=== PATIENT | male | born 1965 | race Caucasian/White ===

== ENCOUNTER 2018-01-29 12:02 | Emergency (ER) | payer MEDICAID, SELFPAY ==
[2018-01-29 12:03] VITALS: BP 146/90; PULSE 88; RESP 18; TEMP 36.3; O2SAT 100; BMI 21.9
--- NOTE | 2018-01-29 12:20 | ED.DCSUM_ITS ---
- ER Visit Summary Date of Service: 01/29/18 Chief Complaint: [Dental pain] History of Present Illness: The patient is a 52 M [presents to the emergency department with complaint of dental pain that became severe yesterday. Patient states that he has had some mild soreness to the right upper teeth for about a week. Patient also has discomfort into the right ear. He subjectively felt hot and chilled last night. Patient denies any recent trauma to his teeth but does state that he has a broken tooth in the right upper side of his mouth.] Physical Examination: [HEENT-PERRLA, EOMI. Cranial nerves II through XII grossly intact. TMs clear. Mucous membranes moist. No adenopathy. Right upper second molar is broken and carried and tender to palpation. No gingival abscess noted. No facial cellulitis. Cardiovascular-regular rate and rhythm without murmur or ectopy Lungs-clear to auscultation, chest wall stable without crepitus or subcu emphysema Abdomen-normoactive bowel sounds, soft, nontender, no rebound or rigidity, no peritoneal signs. Extremities-intact ?4, normal range of motion, normal pulses, atraumatic] Test Results: [None indicated] Emergency Department Course and Treatment: [] Treatment Plan: Patient will be started on amoxicillin and [place] [] Disposition: [Discharged to home in stable condition]. Patient advised to follow -up with the dentist within next 3-5 days. Impression: [Dental pain] This note was generated with [employer] dictation software. It may contain incorrect words, spelling, and punctuation that were not noted in review of the chart prior to signing ED Disposition - Plan for ED Patient: Chief Complaint: Dental Referrals: Giuseppe Richey DO [Primary Care Provider] -
--- NOTE | 2018-01-29 12:22 | DCINST.ED_ITS ---
ED Disposition - Plan for ED Patient: Chief Complaint: Dental Instructions: ED Tooth Pain, ED Cavity Dental Prescriptions: Hydrocodone Bitart/Apap 5-325 [[place] 5/325] 1 - 2 tab PO Q4H PRN PRN 3 Days #12 tab PRN Reason: Pain Amoxicillin 500 mg PO TID #30 tab Referrals: Giuseppe Richey DO [Primary Care Provider] - Additional Instructions: see a dentist
== END 2018-01-29 12:46 | disposition home or self-care (01) ==
PROVIDERS: Emergency Provider Emergency Medicine; Family Provider Family Medicine; PCP Family Medicine
DX: K08.89 Other specified disorders of teeth and supporting structures (principal); S02.5XXA Fracture of tooth (traumatic), initial encounter for closed fracture; X58.XXXA Exposure to other specified factors, initial encounter; Y93.9 Activity, unspecified; Y92.9 Unspecified place or not applicable; Y99.9 Unspecified external cause status; J44.9 Chronic obstructive pulmonary disease, unspecified; Z72.0 Tobacco use
CPT/HCPCS: 99281

== ENCOUNTER → 2018-05-31 13:14 | Outpatient (CLI) | payer MEDICAID, SELFPAY ==
[2018-05-31 15:27] LABS: Absolute Neutrophil Count 7.4 X10^3/uL (2.0-7.7); Basophil# 0.02 X10^3/uL; Basophil% 0.2 % (0-1); Eosinophil# 0.04 X10^3/uL; Eosinophils% 0.4 % (0-5); Hematocrit 44.4 % (40-54); Hemoglobin 14.6 g/dl (13.0-16.5); Lymphocyte % 21.5 % (19-41); Mean Corp Hgb Conc 32.9 g/gl (32-36); Mean Corpuscular Hgb 30.9 pg (27.0-32.0); Mean Corpuscular Volume 93.9 fL (80-94); Monocyte# 1.31 X10^3/uL; Monocyte% 11.7 % (0-10); Neutrophil # 7.37 X10^3/uL (2.7-7.7); Neutrophil % 65.9 % (47-70); Platelet Count 268 K/mm3 (150-450); RBC Distribution Width SD 46.5 fl (35.1-43.9); Red Blood Count 4.73 M/mm3 (4.6-6.2); White Blood Count 11.2 K/mm3 (4.4-11.0)
[2018-05-31 15:29] LABS: POSITIVE COUNT NO; POSITIVE DIFFERENTIAL NO; POSITIVE MORPHOLOGY NO
[2018-05-31 15:37] LABS: ALB/GLOB Ratio 1.3 RATIO (0.9-2.4); AST(SGOT) 22 U/L (15-37); Alanine Aminotransfer ALT/SGPT 37 U/L (16-61); Albumin, Serum 4.7 g/dL (3.2-5.0); Alkaline Phosphatase 78 U/L (45-117); Anion Gap 10 (5-15); BUN 18 mg/dL (7-18); BUN/Creat Ratio 16.4 RATIO (10-20); Calcium,Total 9.2 mg/dL (8.5-10.1); Chloride 105 mmol/L (98-107); Cholesterol 151 mg/dL (200); EST Glomerular Filtration Rate 75 mL/min (>60); Est Glom Filt Rate - Afr Amer 90 mL/min (>60); Globulin 3.7 g/dL (2.2-4.2); Glucose 99 mg/dL (74-106); High Density Lipoprotein 50 mg/dL; Potassium 3.7 mmol/L (3.5-5.1); Protein, Total 8.4 g/dL (6.4-8.2); Sodium Level 144 mmol/L (136-145); T4 Free Direct 1.69 ng/dL (0.76-1.46); Thyroid Stim Hormone (TSH) 1.96 uIU/mL (0.358-3.74); Triglycerides 74 mg/dL; Very Low Density Lipoprotein 15 mg/dL (5-40)
[2018-05-31 17:34] LABS: Chlamydia Trachomatis by PCR Negative (Negative); Neisserai gonorrhoeae by PCR Negative (Negative); Probe Check PASS; Sample Adequacy Control PASS; Specimen Processing Control PASS
[2018-06-01 10:33] LABS: HIV - WCH Non-Reactive (Nonreactive)
[2018-06-03 05:02] LABS: Rapid Plasmin Reagin (RPR) NONREACTIVE (NONREACTIVE)
== END ==
PROVIDERS: Family Provider Family Medicine; PCP Family Medicine; Visit Provider Family Medicine
DX: Z20.9 Contact with and (suspected) exposure to unspecified communicable disease (principal); J44.9 Chronic obstructive pulmonary disease, unspecified; R09.89 Other specified symptoms and signs involving the circulatory and respiratory systems; Z72.0 Tobacco use
CPT/HCPCS: 36415; 80053; 80061; 84439; 84443; 85025; 86592; 86703; 87491; 87591

== ENCOUNTER → 2018-06-10 12:47 | Outpatient (CLI) | payer MEDICAID, SELFPAY ==
--- NOTE | 2018-06-11 18:57 | LEAS_ITS ---
Arterial Study - Arterial Study Arterial Study: This is a 52-year-old male with a history of chronic obstructive pulmonary disease and smoking. Suspecting the presence of atherosclerotic peripheral arterial occlusive disease, the patient was brought to the noninvasive vascular laboratory at this time for the purpose of bilateral noninvasive lower extremity arterial assessment. Doppler signal assessment was used to evaluate the pulses at ankle level bilaterally. The posterior tibial and dorsalis pedis pulses were triphasic bilaterally. Segmental limb pressures were obtained at ankle level bilaterally. The right ankle pressure, as determined by posterior tibial pulse, was measured at 167 mmHg. The right ankle pressure, as determined by dorsalis pedis pulse, was measured at 162 mmHg. The left ankle pressure, as determined by posterior tibial pulse, was measured at 179 mmHg. The left ankle pressure, as determined by dorsalis pedis pulse, was measured at 174 mmHg. Resting ankle-brachial indices were calculated bilaterally. The resting right ankle-brachial index was calculated to be 1.20. The resting left ankle- brachial index was calculated to be 1.29. Impression: Based upon the findings of this noninvasive lower extremity arterial study, there is no evidence of significant atherosclerotic peripheral arterial occlusive disease in the lower extremities bilaterally. Triphasic waveforms were noted at ankle level bilaterally. Resting ankle-brachial indices were bilaterally normal. In summary, this represents a normal resting noninvasive lower extremity arterial study bilaterally.
== END ==
PROVIDERS: Family Provider Family Medicine; PCP Family Medicine; Visit Provider Family Medicine
DX: I83.93 Asymptomatic varicose veins of bilateral lower extremities (principal); R09.89 Other specified symptoms and signs involving the circulatory and respiratory systems; J44.9 Chronic obstructive pulmonary disease, unspecified; Z72.0 Tobacco use
CPT/HCPCS: 93922

== ENCOUNTER 2018-09-24 07:31 | Emergency (ER) | payer MEDICAID, SELFPAY ==
[2018-09-24 07:32] VITALS: BP 147/107; PULSE 124; RESP 18; TEMP 36.1; O2SAT 99; BMI 21.4
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
[2018-09-24 07:55] VITALS: BP 163/108; PULSE 118; RESP 14; O2SAT 99
[2018-09-24] MEDS: Diphth,Pertuss(Acell),Tet Vac 0.5 ML Vial IM (08:10)
== END 2018-09-24 08:26 | disposition home or self-care (01) ==
LOC: ED 08:04
PROVIDERS: Emergency Provider Emergency Medicine; Family Provider Family Medicine; PCP Family Medicine
DX: S61.431A Puncture wound without foreign body of right hand, initial encounter (principal); X99.9XXA Assault by unspecified sharp object, initial encounter; Y93.9 Activity, unspecified; Y92.9 Unspecified place or not applicable; Y99.9 Unspecified external cause status; Z23 Encounter for immunization; J44.9 Chronic obstructive pulmonary disease, unspecified; R00.0 Tachycardia, unspecified; Z72.0 Tobacco use
CPT/HCPCS: 90715; 99282; J7030

== ENCOUNTER 2019-01-17 20:57 | Emergency (ER) | payer MEDICAID, SELFPAY ==
[2019-01-17 20:59] VITALS: BP 147/91; PULSE 89; RESP 22; TEMP 36.4; O2SAT 99; BMI 24.6
[2019-01-17 21:21] LABS: Absolute Lymphocyte Count 1.76 X10^3/ul (0.83-4.51); Absolute Neutrophil Count 15.4 X10^3/uL (2.0-7.7); Basophil# 0.01 X10^3/uL; Basophil% 0.1 % (0-1); Eosinophil# 0.03 X10^3/uL; Eosinophils% 0.2 % (0-5); Hemoglobin 14.9 g/dl (13.0-16.5); Lymphocyte # 1.76 X10^3/ul (4.0); Lymphocyte % 9.7 % (19-41); Mean Corp Hgb Conc 32.4 g/gl (32-36); Mean Corpuscular Hgb 30.1 pg (27.0-32.0); Mean Corpuscular Volume 92.9 fL (80-94); Monocyte% 4.9 % (0-10); Neutrophil # 15.41 X10^3/uL (2.7-7.7); Neutrophil % 84.6 % (47-70); POSITIVE COUNT NO; POSITIVE DIFFERENTIAL NO; POSITIVE MORPHOLOGY NO; Platelet Count 344 K/mm3 (150-450); RBC Distribution Width CV 13.3 % (11.6-14.6); RBC Distribution Width SD 45.3 fl (35.1-43.9); Red Blood Count 4.95 M/mm3 (4.6-6.2); White Blood Count 18.2 K/mm3 (4.4-11.0)
[2019-01-17 21:34] LABS: Anion Gap 10 (5-15); BUN 24 mg/dL (7-18); Calcium,Total 9.4 mg/dL (8.5-10.1); Chloride 103 mmol/L (98-107); Creatinine, Serum 1.26 mg/dL (0.70-1.30); EST Glomerular Filtration Rate 64 mL/min (>60); Est Glom Filt Rate - Afr Amer 77 mL/min (>60); Glucose 120 mg/dL (74-106); Potassium 4.1 mmol/L (3.5-5.1); Sodium Level 138 mmol/L (136-145)
[2019-01-17] MEDS: Ketorolac 30 MG/ML Syringe IV (21:34)
--- NOTE | 2019-01-17 21:34 | CT_ITS ---
STUDY: CT ABDOMEN AND PELVIS WITHOUT CONTRAST REASON FOR EXAM: Male, 53 years old. Right flank pain. RADIATION DOSAGE (If Supplied By Facility): CTDIvol = ( 6.41 ) mGy, DLP = ( 321.94 ) mGycm TECHNIQUE: Transaxial images were obtained from the dome of the diaphragm to the symphysis pubis without oral contrast, and without intravenous contrast. Sagittal and coronal images were reconstructed. Individualized dose optimization techniques were used for this CT. COMPARISON: CT of the abdomen and pelvis, October 29, 2015. FINDINGS: The visualized lung bases are unremarkable. There is a small right Bochdalek's hernia and retroperitoneal fat. The visualized portions of the heart are within normal limits. Normal liver. Normal gallbladder and extrahepatic biliary system. Normal spleen. Normal pancreas. Normal bilateral adrenal glands. The right kidney is mildly prominent. There are scattered nonobstructing renal calculi throughout the kidney. The largest, in the lower pole, measures 3 mm in diameter. There is marked hydronephrosis and ureterectasis to the pelvic side wall where there is a 0.5 x 0.4 x 0.5 cm obstructing calculus (image 129, series 2. Left kidney is of normal size and cortical thickness. There are multiple renal calculi. The largest, in the lower pole measures 8 mm in diameter. There is no hydronephrosis. Normal left ureter. Stomach is distended with fluid and debris. There is thickening of the wall of the body and proximal antrum of the stomach. Normal small intestine. Normal colon. The appendix is visualized and appears normal. There is diffuse atherosclerotic calcification of the abdominal aorta, without a demonstrated aneurysm. Normal inferior vena cava. Normal retroperitoneum. 19 year bladder is of normal size wall thickness. There is a 1.7 cm Hutch diverticulum on the left. Normal prostate and seminal vesicles. There is no pelvic lymphadenopathy. No free air or free fluid is seen within the peritoneal cavity. Normal abdominal wall. There are minimal degenerative changes of the lumbar spine. CT/Abdomen/Pelvis without Cont IMPRESSION: 1. Distal right ureteral calculus with obstructive uropathy. This appears slightly decreased when compared to the prior CT. The size of the obstructing stone has decreased when compared to the prior exam. 2. Multiple bilateral renal calculi essentially unchanged from prior exam. 3. Left-sided Hutch diverticulum. 4. No other interval change. Electronically Signed: Martín Welch DO at 23:13 EST Tel [phone], Service support ,
--- NOTE | 2019-01-17 21:39 | ED.DCSUM_ITS ---
- ER Visit Summary Date of Service: 01/17/19 Chief Complaint: Acute right flank pain History of Present Illness: The patient is a 53 M history of kidney stones. Patient states he had acute onset right flank pain approximately 5:30 PM tonight. Associated nausea and vomiting. No diarrhea. No fever. No gross hematuria or dysuria. Similar to prior kidney stone he had 2 years ago. He has needed to have a kidney stone resected before in the past. Physical Examination: Middle-aged male. Writhing in pain. Vital signs are stable. He is afebrile. He does not look septic or toxic. HEENT exam unremarkable. Neck nontender. Lungs clear to auscultation bilaterally. Heart regular rhythm no murmur. Abdomen soft and nontender. Normal bowel sounds no peritoneal signs. Extremities moves all 4. Neurovascular intact. Calves nontender without edema. Normal motor strength. Back exam nontender. Neurologically is awake alert with no focal motor deficits. Test Results: CT flank study showed right hydroureter which is been seen on prior CTs. A distal right ureteral calculus with a hemoglobin of 14. Electrolytes unremarkable. Creatinine 1.2. UA showed positive nitrites but no white cells. And only 1+ bacteria. 5-10 red cells and no clear cells. Clinically I do not think this is an infection. Emergency Department Course and Treatment: Patient treated with IV Dilaudid, IV Toradol and IV Zofran for pain and nausea. Repeat exam at 2255 patient's pain is nearly resolved. He is feeling much better after the IV pain medication. Treatment Plan: [place] home pack. Prescription for 6 Toradol. Nausea and 10 [place]. Return if feeling worse or follow-up with his urologist. Disposition: Discharge Impression: Acute right flank pain secondary to a distal right ureteral calculi This note was generated with [employer] dictation software. It may contain incorrect words, spelling, and punctuation that were not noted in review of the chart p rior to signing ED Disposition - Plan for ED Patient: Referrals: Giuseppe Richey DO [Primary Care Provider] -
[2019-01-17] MEDS: Ondansetron 4 MG/2 ML Vial IV (21:52)
[2019-01-17] MEDS: HYDROmorphone 1 MG/ML Syringe IV (21:53)
[2019-01-17] MEDS: 0.9% Normal Saline 1,000 ML 999 ML IV (22:01)
[2019-01-17 22:35] VITALS: BP 158/86; PULSE 71; RESP 18; TEMP 36.6; O2SAT 98
[2019-01-17 23:08] LABS: Squamous Epithelial Cells - UA 0 SEEN /hpf (0-5)
[2019-01-17 23:10] LABS: Color, Urine Yellow (Yellow); Glucose, Dipstick Normal (Normal); Ketone-Dipstick 5 mg/dl (Negative); Leukocyte Esterase-Dipstick 100 /ul (Negative); Nitrite-Dipstick Positive (Negative); Occult Blood-Urine 10 /ul (Negative); Protein-Dipstick Negative (Negative); Urine Bilirubin Dipstick Negative (Negative); Urine Clarity Cloudy (Clear); Urine Urobilinogen 1 mg/dl (Normal)
[2019-01-17 23:16] LABS: Mucous, Urine RARE /hpf (<or=2+)
[2019-01-17 23:17] LABS: Amorphous Sediment 2+; Bacteria 1+ /hpf (None Seen)
[2019-01-17 23:18] LABS: Red Blood Cells-Urine 0-5 SEEN /hpf (0-5); White Blood Cells 5-10 SEEN /hpf (0-5)
--- NOTE | 2019-01-17 23:40 | ED.DEP ---
ED Disposition - Plan for ED Patient: Disposition: Home or Assisted Living Instructions: ED Stone Renal W Colic Prescriptions: Hydrocodone Bitart/Apap 5-325 [[place] 5MG-325MG] 1 tab PO Q4H PRN PRN 2 Days #7 tab PRN Reason: Pain Ketorolac [Toradol] 10 mg PO Q4H #6 tab Referrals: Giuseppe Richey DO [Primary Care Provider] - As Needed Jonas Phillips MD [STAFF PHYSICIAN] - 3-5 Days if not improving Additional Instructions: Plenty of fluids and rest. Toradol and/or [place] both for pain. Follow-up with your urologist Dr. Adrián Phillips
--- NOTE | 2019-01-17 23:43 | DCINST.ED_ITS ---
ED Disposition - Plan for ED Patient: Disposition: Home or Assisted Living Instructions: ED Stone Renal W [place] Prescriptions: Hydrocodone Bitart/Apap 5-325 [[place] 5MG-325MG] 1 tab PO Q4H PRN PRN 2 Days #7 tab PRN Reason: Pain Ketorolac [Toradol] 10 mg PO Q4H #6 tab Referrals: Giuseppe Richey DO [Primary Care Provider] - As Needed Jonas Phillips MD [STAFF PHYSICIAN] - 3-5 Days if not improving Additional Instructions: Plenty of fluids and rest. Toradol and/or [place] both for pain. Follow-up with your urologist Dr. Adrián Phillips
[2019-01-18 00:21] VITALS: BP 145/87; PULSE 89; RESP 16; O2SAT 98
[2019-01-18] MEDS: HYDROcodone Bitartrate/Apap 5/325 Tablet PO (00:26)
== END 2019-01-18 00:41 | disposition home or self-care (01) ==
PROVIDERS: Emergency Medicine; Emergency Provider Emergency Medicine; Family Provider Family Medicine; PCP Family Medicine
DX: N13.2 Hydronephrosis with renal and ureteral calculous obstruction (principal); J44.9 Chronic obstructive pulmonary disease, unspecified; Z72.0 Tobacco use; Z87.442 Personal history of urinary calculi
CPT/HCPCS: 74176; 80048; 81001; 85025; 96361; 96374; 96375; 99284; J7030; A4216; J2405

== ENCOUNTER 2021-08-22 19:23 | Emergency (ER) | payer MEDICAID, SELFPAY ==
[2021-08-22 19:25] VITALS: BP 144/108; PULSE 106; RESP 18; TEMP 38.1; O2SAT 99; BMI 24.5
--- NOTE | 2021-08-22 20:20 | EDS_ITS ---
HPI History of Present Illness Chief Complaint: Fever Detail of Chief Complaint: Fever that started today Informant: patient Narrative Narrative: Patient presents to the emergency department stating that he started with a fever around 4 PM. Patient states that he woke up from a nap and had chills. He has had a slight cough and some congestion today. Patient denies urinary symptoms. He does complain of some body aches and some pain in his low back. Patient states his temp at home was up to 103. He has history of COPD and history of kidney stones. He denies any sick contacts and has not had the Covid vaccine. Prior similar symptoms: No PFSH PFSH Home Medications albuterol sulfate [Ventolin Hfa] 2 puff IH Q6H PRN PRN 01/17/19 [History Last Taken Unknown] cephalexin 500 mg PO Q6 #40 capsule 08/22/21 [Rx Last Taken Unknown] Allergy/AdvReac Type Severity Reaction Status Date / Time morphine Allergy Nausea Verified 01/17/19 21:03 Social History Smoking Status: Current every day smoker tobacco type: cigarettes ROS ROS ED Constitutional Constitutional ED: Reports systems reviewed and no addt'l complaints, except as documented, chills, fever(s) and sweats; Denies body ache(s) or change in weight Eyes Eyes: Denies acute decrease in peripheral vision, change in vision, double vision or loss of vision ENT ENT ED: Reports none; Denies ear pain, lip swelling, loss taste/smell, neck pain, otalgia or sore throat Cardiovascular Cardiovascular: Reports none; Denies abdominal pain, chest pain with activity, leg edema, lightheadedness, palpitations, rapid heart rate or syncope Respiratory/Chest Respiratory/Chest: Reports none and cough; Denies change in mental status, dry cough, dyspnea, hemoptysis, shortness of breath at rest or shortness of breath with exertion Gastrointestinal Gastrointestinal: Reports none; Denies abdominal pain, change in stool character, diarrhea, hematemesis, hematochezia, melena, rectal bleeding or vomiting Genitourinary Genitourinary ED: Reports none; Denies abdominal discomfort, anuria, dysuria, genital pain or polyuria Musculoskeletal Musculoskeletal: Reports none and myalgias; Denies arthralgias, back pain, difficulty walking, extremity pain or muscle weakness Integumentary Reports none; Denies abscess or rash Neurologic Neurologic: Reports none and headache(s); Denies abnormal gait, confusion, focal weakness, frequent falls, loss of vision, numbness, paresthesias, radicular pain, vertigo or weakness Psychiatric Psychiatric: Reports systems reviewed and no addt'l complaints, except as documented and none; Denies behavioral changes, confusion, difficulty concentrating, hallucinations, suicidal ideation, tactile hallucinations or visual hallucinations Endocrine Endocrinology: Denies none, cold intolerance, excessive sweating, fatigue or heat intolerance Hematologic/Lymphatic Hematologic/Lymphatic: Reports none; Denies anemia, easy bleeding or easy bruising Allergic/Immunologic Allergic/Immunologic ED: Denies as per HPI, none, lip swelling, mouth swelling, throat swelling, tongue swelling or hives EXAM Physical Exam Const Vital Signs: 08/22/21 19:25 Temperature 100.6 F H Temperature Source Oral Pulse Rate 106 H Respiratory Rate 18 Blood Pressure 144/108 H Blood Pressure Mean 120 Pulse Ox 99 Oxygen Delivery Method Room Air Positive well nourished and well developed General Appearance ED: well developed and NAD HEENT Reports TM's clear and moist mucous membranes normocephalic and atraumatic; Negative for trauma or tenderness Tympanic Membrane ED: Yes TM's clear Eyes PERRL and EOMs intact bilaterally General Eye ED: Negative for pale conjunctiva or scleral icterus Neck no lymphadenopathy, supple and no JVD General: Negative for tenderness Chest Wall inspection of chest normal and palpation of chest normal Chest: Negative for tenderness Resp normal respiratory effort and clear to auscultation bilaterally Effort and Inspection: Negative for respiratory distress or pain with movement Auscultation: Negative for rhonchi, wheezes or diminished lung sounds Cardio regular rate, regular rhythm, S1 normal heart sound, S2 normal heart sound and no murmurs Peripheral Pulses: pulses 2+ throughout GI normal to inspection, nondistended, normoactive bowel sounds, soft to palpation, non-tender, non-distended and no masses Back/Spine no CVA tenderness and no thoracic nor lumbar tenderness Extremity normal to inspection General Extremety ED: Negative for edema General Extremity: Negative for edema Neuro oriented x3, CN's II-XII intact bilaterally, no sensory deficits noted and gait normal Sensorium / Orientation: awake, alert, oriented to person, oriented to place and oriented to time Motor Exam: strength 5/5 throughout and strength abnormal Psych mental status grossly normal Skin no rashes or lesions noted and no wounds MDM MDM MDM Narrative Medical decision making narrative: I suspect patient's symptoms likely secondary to a UTI. Patient was given Rocephin 1 g IV. Urine culture was sent. Patient will be started on Keflex. Lab Data Attestation: I reviewed the patient's lab results. Labs: Laboratory Results - last 24 hr 08/22/21 08/22/21 08/22/21 20:20 20:20 20:43 WBC 11.9 H RBC 4.86 Hgb 14.5 Hct 44.2 MCV 90.9 MCH 29.8 MCHC 32.8 RDW Std Deviation 45.1 H RDW Coeff of [place] 13.4 Plt Count 351 MPV 9.9 Immature Gran % (Auto) 0.300 Neut % (Auto) 73.2 H Lymph % (Auto) 18.1 L [place] % (Auto) 8.0 Eos % (Auto) 0.1 Baso % (Auto) 0.3 Absolute Neuts (auto) 8.7 H Absolute Lymphs (auto) 2.16 Nucleated RBC % 0 Sodium 136 Potassium 3.6 Chloride 106 Carbon Dioxide 25.0 Anion Gap 5 BUN 12 Creatinine 1.16 Estim Creat Clear Calc 71.95 Est GFR (MDRD) Af Amer 84 Est GFR (MDRD) Non-Af 69 BUN/Creatinine Ratio 10.3 Glucose 94 Lactic Acid 1.0 Calcium 9.5 Urine Color Urine Clarity Urine pH Ur Specific [place] Urine Protein Urine Glucose (UA) Urine Ketones Urine Occult Blood Urine Nitrite Urine Bilirubin Urine Urobilinogen Ur Leukocyte Esterase Urine RBC Urine WBC Ur Squamous Epith Cells Urine Bacteria Urine Mucus 08/22/21 22:10 WBC RBC Hgb Hct MCV MCH MCHC RDW Std Deviation RDW Coeff of [place] Plt Count MPV Immature Gran % (Auto) Neut % (Auto) Lymph % (Auto) [place] % (Auto) Eos % (Auto) Baso % (Auto) Absolute Neuts (auto) Absolute Lymphs (auto) Nucleated RBC % Sodium Potassium Chloride Carbon Dioxide Anion Gap BUN Creatinine Estim Creat Clear Calc Est GFR (MDRD) Af Amer Est GFR (MDRD) Non-Af BUN/Creatinine Ratio Glucose Lactic Acid Calcium Urine Color Yellow Urine Clarity Sl. Cloudy Urine pH 7.0 Ur Specific [place] 1.010 Urine Protein 15 H Urine Glucose (UA) Normal Urine Ketones Negative Urine Occult Blood 50 H Urine Nitrite Positive H Urine Bilirubin Negative Urine Urobilinogen 1 H Ur Leukocyte Esterase 100 H Urine RBC 0-5 SEEN Urine WBC 5-10 SEEN Ur Squamous Epith Cells 0-5 SEEN Urine Bacteria 3+ Urine Mucus 0 SEEN Radiography Chest X-Ray - ED: 1 View Diagnostic Testing: Radiology Impression Chest X-Ray 08/22/21 21:00 IMPRESSION: No acute radiographic abnormalities. Electronically Signed: Christian Yao MD at 21:53 EDT Tel , Service support , Abdomen/Pelvis CT 08/22/21 21:21 IMPRESSION: 1. Nonobstructing stones left kidney. Punctate stones in the right kidney. No hydronephrosis. 2. There is fluid in the colon suggesting diarrhea. ASSESSMENT: ABNORMAL report - There are abnormal findings in this report which may be related or unrelated to the reason for the exam. Electronically Signed: Reji Brizuela MD at 22:01 EDT Tel , Service support , 1 view chest x-ray obtained interpreted by myself as no acute disease process. Radiology in agreement. Discharge Plan Triage Chief Complaint: Fever ED Provider: Jose F Farmer Dx/Rx/DC Orders Clinical Impression: Acute UTI Instructions: ED Urinary Tract Infections in Men Prescriptions: New cephalexin [cephalexin] 500 MG capsule 500 mg PO Q6 Qty: 40 RF: 0 No Action albuterol sulfate [Ventolin HFA] 18 GM HFA aerosol inhaler 2 puff IH Q6H PRN PRN (Reason: Sob &/Or Wheezing) RF: 0 Primary Care Provider: Giuseppe Richey Referrals: Giuseppe Richey DO [Primary Care Provider] - 3-5 Days Disposition Disposition: Home, Self Care
[2021-08-22 20:38] LABS: Absolute Lymphocyte Count 2.16 X10^3/uL (0.83-4.51); Absolute Neutrophil Count 8.7 X10^3/uL (2.0-7.7); Basophil# 0.03 X10^3/uL; Basophil% 0.3 % (0-1); Eosinophil# 0.01 X10^3/uL; Eosinophils% 0.1 % (0-5); Hematocrit 44.2 % (40-54); Hemoglobin 14.5 g/dL (13.0-16.5); Lymphocyte # 2.16 X10^3/ul (0.83-4.51); Lymphocyte % 18.1 % (19-41); Mean Corp Hgb Conc 32.8 g/dL (32-36); Mean Corpuscular Hgb 29.8 pg (27.0-32.0); Mean Corpuscular Volume 90.9 fL (80-94); Mean Platelet Vol. 9.9 fl (6.2-12.0); Monocyte# 0.96 X10^3/uL; NRBC Flagged by Analyzer 0 % (0-5); Neutrophil # 8.74 X10^3/uL (2.7-7.7); Neutrophil % 73.2 % (47-70); Platelet Count 351 K/mm3 (150-450); RBC Distribution Width CV 13.4 % (11.6-14.6); RBC Distribution Width SD 45.1 fl (35.1-43.9); Red Blood Count 4.86 M/mm3 (4.6-6.2); White Blood Count 11.9 K/mm3 (4.4-11.0)
[2021-08-22] MEDS: 0.9% Normal Saline 1,000 ML 150 ML IV (20:47)
[2021-08-22 20:48] LABS: Anion Gap 5 (5-15); BUN 12 mg/dL (7-18); BUN/Creat Ratio 10.3 RATIO (10-20); Calcium,Total 9.5 mg/dL (8.5-10.1); Chloride 106 mmol/L (98-107); Creatinine, Serum 1.16 mg/dL (0.70-1.30); EST Glomerular Filtration Rate 69 mL/min (>60); Est Glom Filt Rate - Afr Amer 84 mL/min (>60); Estimated Creatinine Clearance 71.95 ml/min; Glucose 94 mg/dL (74-106); Potassium 3.6 mmol/L (3.5-5.1); Sodium Level 136 mmol/L (136-145)
--- NOTE | 2021-08-22 21:00 | RAD_ITS ---
INDICATION: fever EXAMINATION/TECHNIQUE: X-RAY - XR Chest 1 View COMPARISON: 01/08/2016. FINDINGS: The lungs are clear. The cardiomediastinal silhouette is unremarkable. No pleural effusion or pneumothorax. No acute osseous abnormalities. RAD/Chest 1 View (Portable) IMPRESSION: No acute radiographic abnormalities. Electronically Signed: Christian Yao MD at 21:53 EDT Tel , Service support ,
--- NOTE | 2021-08-22 21:21 | CT_ITS ---
EXAM: CT Abdomen and Pelvis Without Intravenous Contrast CLINICAL INDICATION: 55 years old, Male; right flank pain TECHNIQUE: Helically acquired images were obtained of the abdomen and pelvis without intravenous contrast. This CT exam was performed using one or more of the following dose reduction techniques: automated exposure control, adjustment of the mA and/or kV according to patient size, and/or use of iterative reconstruction technique. This report was created using [employer] report generation technology. COMPARISON: CT abdomen and pelvis dated 01/17/2019 FINDINGS: Lower thorax: Unremarkable. Lung bases are clear. No cardiomegaly. No significant pericardial effusion. ABDOMEN: Liver: Unremarkable. Homogeneous. Gallbladder and bile ducts: Unremarkable. No calcified gallstones. No gallbladder distention or wall edema. No intra- or extrahepatic biliary ductal dilation. Pancreas: Unremarkable. No focal cystic mass. Spleen: Unremarkable. Normal size without focal cystic or solid mass. Adrenals: Unremarkable. No nodules. Kidneys and ureters: Nonobstructing stones left kidney. Punctate stones in the right kidney. No hydronephrosis. Normal renal size and position. Stomach and bowel: There is fluid in the colon suggesting diarrhea. Mild fecal retention in the rectum. No stomach or bowel distention. No focal inflammatory change. PELVIS: Appendix: Normal appendix. Bladder: Bladder diverticulum on the left. Reproductive: Unremarkable as visualized. No mass. ABDOMEN and PELVIS: Intraperitoneal space: Unremarkable. No ascites or other fluid collection. No free air. Bones/joints: Unremarkable. No suspicious lytic or blastic abnormality. Soft tissues: Right-sided Bochdalek hernia containing fat. Vasculature: Unremarkable. Abdominal aorta is non-dilated. Lymph nodes: Unremarkable. No enlarged lymph nodes. CT/Abdomen/Pelvis without Cont IMPRESSION: 1. Nonobstructing stones left kidney. Punctate stones in the right kidney. No hydronephrosis. 2. There is fluid in the colon suggesting diarrhea. ASSESSMENT: ABNORMAL report - There are abnormal findings in this report which may be related or unrelated to the reason for the exam. Electronically Signed: Reji Brizuela MD at 22:01 EDT Tel , Service support ,
[2021-08-22] MEDS: Ketorolac 30 MG/ML Syringe IV (21:32)
[2021-08-22] MEDS: HYDROmorphone 1 MG/ML Syringe IV (21:32)
[2021-08-22] MEDS: Ondansetron 4 MG/2 ML Vial IV (21:32)
[2021-08-22 22:17] LABS: Mucous, Urine 0 SEEN /hpf (<or=2+)
[2021-08-22 22:27] LABS: Color, Urine Yellow (Yellow); Glucose, Dipstick Normal (Normal); Ketone-Dipstick Negative (Negative); Leukocyte Esterase-Dipstick 100 /ul (Negative); Nitrite-Dipstick Positive (Negative); Occult Blood-Urine 50 /ul (Negative); Protein-Dipstick 15 mg/dl (Negative); Urine Bilirubin Dipstick Negative (Negative); Urine Clarity Sl. Cloudy (Clear); Urine Urobilinogen 1 mg/dl (Normal)
[2021-08-22 22:38] LABS: Bacteria 3+ /hpf (None Seen); Red Blood Cells-Urine 0-5 SEEN /hpf (0-5); Squamous Epithelial Cells - UA 0-5 SEEN /hpf (0-5); White Blood Cells 5-10 SEEN /hpf (0-5)
[2021-08-22] MEDS: Ceftriaxone 1 GM/50 ML BAG IV (22:54)
[2021-08-22 23:02] VITALS: BP 145/82; PULSE 85; RESP 18; O2SAT 99
== END 2021-08-23 00:09 | disposition home or self-care (01) ==
PROVIDERS: Emergency Provider Emergency Medicine; PCP Family Medicine
DX: N39.0 Urinary tract infection, site not specified (principal); J44.9 Chronic obstructive pulmonary disease, unspecified; F17.210 Nicotine dependence, cigarettes, uncomplicated; Z87.442 Personal history of urinary calculi
CPT/HCPCS: 71045; 74176; 80048; 81001; 83605; 85025; 87040; 87086; 87088; 87186; 87426; 96365; 96375; 99283; J7030; A4216; J2405

== ENCOUNTER 2022-01-27 23:05 | Emergency (ER) | payer MEDICAID, SELFPAY ==
[2022-01-27 23:06] VITALS: BP 159/99; PULSE 102; RESP 18; TEMP 38.2; O2SAT 99; BMI 24.3
--- NOTE | 2022-01-27 23:25 | EX.ED.DYSGE1 ---
HPI History of Present Illness Chief Complaint: General Illness Narrative Narrative: Patient is a 56-year-old male with past medical history of COPD. He states that he began with fevers chills congestion cough and muscle aches yesterday. He states his temperature has been as high as 103. He denies any known sick contacts but states that he feels like his symptoms are worsening over the past 1 to 2 days and secondary to this presents for evaluation. Patient denies receiving a Covid or influenza vaccination. PFSH PFSH Home Medications albuterol sulfate [Ventolin Hfa] 2 puff IH Q6H PRN PRN 01/17/19 [History Last Taken Unknown] cephalexin 500 mg PO Q6 #40 capsule 08/22/21 [Rx Last Taken Unknown] oseltamivir [Tamiflu] 75 mg PO BID 5 Days #10 cap 01/28/22 [Rx Last Taken Unknown] prednisone 40 mg PO DAILY 7 Days #14 tab 01/28/22 [Rx Last Taken Unknown] Allergy/AdvReac Type Severity Reaction Status Date / Time morphine Allergy Nausea Verified 01/27/22 23:10 Social History Smoking Status: Current every day smoker tobacco type: cigarettes ROS ROS ED Constitutional Constitutional ED: Reports chills and fever(s) ENT ENT ED: Reports rhinorrhea and sore throat Cardiovascular Cardiovascular: Denies chest pain Respiratory/Chest Respiratory/Chest: Reports cough, dyspnea and sputum Gastrointestinal Gastrointestinal: Denies abdominal pain, diarrhea, nausea or vomiting Genitourinary Genitourinary ED: Denies dysuria Musculoskeletal Musculoskeletal: Reports myalgias Integumentary Denies rash Neurologic Neurologic: Denies headache(s) Hematologic/Lymphatic Hematologic/Lymphatic: Denies easy bleeding or easy bruising EXAM Physical Exam Const Vital Signs: 01/27/22 23:06 01/28/22 00:54 01/28/22 00:56 Temperature 100.7 F H 99.0 F Temperature Source Temporal Temporal Pulse Rate 102 H Respiratory Rate 18 Respiratory Pattern Normal Blood Pressure 159/99 H Blood Pressure Mean 119 Pulse Ox 99 Oxygen Delivery Method Room Air Positive well nourished and well developed General Appearance ED: well developed HEENT HEENT Narrative: Cobblestoning the posterior pharynx consistent with sinus drainage but no airway edema or compromise Eyes PERRL and EOMs intact bilaterally Neck supple Neck Narrative: Positive anterior cervical adenopathy noted Resp normal respiratory effort Resp Narrative: Breath sounds are diminished throughout with faint expiratory wheeze diffusely and rhonchi in bilateral bases Cardio regular rhythm Rate: tachycardic and other Other Details: Slightly tachycardic rate with regular rhythm GI normal to inspection, nondistended, normoactive bowel sounds, non-tender, non-distended and no masses Auscultation: normoactive bowel sounds Palpation: soft Extremity normal to inspection Extremity Narrative: No asymmetric edema no pitting edema negative Homans' sign bilaterally Neuro oriented x3 and CN's II-XII intact bilaterally Sensorium / Orientation: alert Motor Exam: strength 5/5 throughout Psych mental status grossly normal Skin no rashes or lesions noted MDM MDM MDM Narrative Medical decision making narrative: Patient presented to the ER with low-grade fever but otherwise in no acute respiratory distress. His history and physical exam as well as constellation of symptoms is most consistent with influenza. I elected to do a chest x-ray with Covid and influenza swabs at this time. His Covid was negative but influenza was positive for influenza A. Chest x-ray question brewing pneumonia but if this is true then it is viral in nature and there is no need for antibiotics. After treatment patient had improvement of his symptoms and was in no acute respiratory distress. Therefore this time as he is not requiring supplemental oxygen and has no physical exam findings to suggest septicemia he does not need placed and he will be given symptomatic medications and discharged home Radiography Diagnostic Testing: Clinical Impression(s) from Imaging Studies Chest X-Ray 01/28/22 00:00 IMPRESSION: Patchy bibasilar airspace disease suspicious for pneumonia. Recommend short-term follow-up for resolution. at 0044 Reported and signed by: Jaime Burris MD Electronically Signed: Jaime Burris MD at 0:43 EST Reading Location ID and State: [facility] / MD Tel , Service support , Discharge Plan Triage Chief Complaint: General Illness ED Provider: Johnson Nuñez Dx/Rx/DC Orders Clinical Impression: Influenza A Instructions: ED Influenza (Adult) Prescriptions: New prednisone 20 mg tablet 40 mg PO DAILY 7 Days Qty: 14 RF: 0 oseltamivir [Tamiflu] 75 mg capsule 75 mg PO BID 5 Days Qty: 10 RF: 0 No Action albuterol sulfate [Ventolin HFA] 18 GM HFA aerosol inhaler 2 puff IH Q6H PRN PRN (Reason: Sob &/Or Wheezing) RF: 0 cephalexin [cephalexin] 500 MG capsule 500 mg PO Q6 Qty: 40 RF: 0 Primary Care Provider: Giuseppe Richey Referrals: Giuseppe Richey DO [Primary Care Provider] - Disposition Disposition: Home, Self Care Discharge Date/Time: 01/28/22 01:07
[2022-01-27] MEDS: 0.9% Normal Saline 1,000 ML 999 ML IV (23:58)
[2022-01-27] MEDS: HYDROmorphone 1 MG/ML Syringe IV (23:58)
[2022-01-27] MEDS: Ondansetron 4 MG/2 ML Vial IV (23:58)
[2022-01-27] MEDS: Acetaminophen 500 MG Tablet 1000 MG PO (23:58)
[2022-01-27] MEDS: MethylPREDNISolone 125 MG/2 ML Vial IV (23:58)
--- NOTE | 2022-01-28 | RAD_ITS ---
HISTORY: cough EXAMINATION/TECHNIQUE: XR Chest 1 View: Portable upright AP chest x-ray COMPARISON: 08/22/21 FINDINGS: LINES/DEVICES: None. LUNGS: Patchy bibasilar airspace opacities without consolidation, edema or effusion. MEDIASTINUM AND CARDIOVASCULAR STRUCTURES: Cardiac silhouette not enlarged. Central airways and mediastinal contour are unremarkable. BONES AND SOFT TISSUES: No acute bony abnormalities. RAD/Chest 1 View (Portable) IMPRESSION: Patchy bibasilar airspace disease suspicious for pneumonia. Recommend short-term follow-up for resolution. at 0044 Reported and signed by: Jaime Burris MD Electronically Signed: Jaime Burris MD at 0:43 EST ,
[2022-01-28 00:54] VITALS: TEMP 37.2
== END 2022-01-28 01:07 | disposition home or self-care (01) ==
PROVIDERS: Emergency Provider Emergency Medicine; PCP Family Medicine; Visit Provider Emergency Medicine
DX: J10.1 Influenza due to other identified influenza virus with other respiratory manifestations (principal); J44.9 Chronic obstructive pulmonary disease, unspecified; F17.210 Nicotine dependence, cigarettes, uncomplicated; Z79.51 Long term (current) use of inhaled steroids
CPT/HCPCS: 71045; 87426; 87804; 96361; 96374; 96375; 99284; J7030; A4216; J2405